=== PATIENT | female | born 1990 | race African-American/Black ===

== ENCOUNTER 2025-06-25 06:34 | Emergency (ER) | payer OTHER, SELFPAY ==
[2025-06-25 06:37] VITALS: BP 152/114
--- NOTE | 2025-06-25 06:49 | ED.GENMED ---
History of Present Illness
General
Chief Complaint: Chest Pain
Source: patient and other (care home RN)
Time Seen by Provider: 06/25/25 06:36
History of Present Illness
History of Present Illness:
Note:
CHIEF COMPLAINT(S)
Substance withdrawal, chest pain, and elevated blood pressure.
HISTORY OF PRESENT ILLNESS
The patient is a 35-year-old female with a history of pericarditis and substance use disorder. She presented with symptoms of withdrawal and chest pain after being released from [facility] this morning. She reports having missed her scheduled doses of
Suboxone (buprenorphine) due to an intended medication switch that was not implemented correctly. The patient attributes her current symptoms, including chest tightness and hypertension, to this lapse in her medication regimen. She reports that she
was on a daily dose of Suboxone before her incarceration and missed two doses since her release. The patient experienced chest pain, for which she was previously hospitalized, and was diagnosed with pericarditis treated with colchicine. She denies
any current symptoms indicative of pericarditis exacerbation. Prior to incarceration, the patient engaged in intravenous fentanyl use.
ADDITIONAL HISTORY OBTAINED FROM SOURCES OTHER THAN THE PATIENT
According to the patients report, the transition in medication from Suboxone to Sublocade was planned but not executed. Information regarding missed medication and initial hospital treatment was confirmed by unidentified records or personnel at the
[facility].
PAST MEDICAL AND SURGICAL HISTORY
The patient has a history of pericarditis.
CHRONIC MEDICAL CONDITIONS SIGNIFICANTLY AFFECTING CARE
History of pericarditis and substance use disorder are significant.
SOCIAL DETERMINANTS AFFECTING HEALTH
The patient reports a history of intravenous fentanyl use.
MEDICATIONS
The patient was previously on Suboxone (buprenorphine) once daily and colchicine for pericarditis.
REVIEW OF SYSTEMS
- Cardiovascular: Reports chest pain and hypertensive episodes.
- Neurological: No focal neurological deficit reported.
- Substance Use: History of intravenous fentanyl use.
PHYSICAL EXAM
General: Alert, no acute distress.
Skin: Warm, dry.
Head: Normocephalic, atraumatic.
Neck: Supple, trachea midline.
Eyes, Ears, Nose, Mouth, and Throat: Oral mucosa moist.
Cardiovascular: Tachycardic, hypertensive, regular heart sounds, no murmurs.
Respiratory: Respirations are non-labored.
Gastrointestinal: Abdomen nondistended.
Back: Normal range of motion, normal alignment.
Musculoskeletal: Normal ROM, normal strength.
Neurological: Alert and oriented to person, place, time, and situation.
Psychiatric: Cooperative, appropriate mood and affect.
PROBLEM LIST
Acute Problems:
- Substance withdrawal
- Hypertension
Chronic Problems:
- Pericarditis
- Substance use disorder
PLAN
1. Administer Subutex to manage withdrawal symptoms.
2. Conduct Electrocardiogram (EKG) to verify cardiac status.
3. Perform basic laboratory tests.
4. Administer intravenous fluids as needed.
5. Monitor and manage blood pressure.
DIFFERENTIAL DIAGNOSIS
The Differential Diagnosis includes, in no particular order and is not limited to:
1. Substance Withdrawal Syndrome
2. Acute Coronary Syndrome
3. Hypertensive Emergency
4. Myocarditis
5. Pericarditis
6. Anxiety-Related Chest Pain
7. Pulmonary Embolism
8. Panic Disorder
9. Drug-Induced Cardiovascular Effects
10. Tachyarrhythmia
CARE-UPDATE
06/25/25 - 06:48
Patient has not received the scheduled 16 mg of Subutex. There was an attempt to administer an additional 8 mg dose today due to her symptoms, but administration was unsuccessful. Awaiting records from recent hospitalization as discussed with the
care home nurse.
Disposition:
SUMMARY OF ENCOUNTER
The patient, a 35-year-old female with a history of pericarditis and substance use disorder, presented to the emergency department with substance withdrawal symptoms, chest pain, and elevated blood pressure after missing scheduled doses of
buprenorphine (Subutex) due to a medication transition issue. Symptoms were exacerbated following her release from [facility] earlier that day. Upon reassessment, she reported significant improvement, was able to eat, and was feeling better after initial
symptoms of emesis. The symptoms were strongly suspected to be related to buprenorphine withdrawal. Past attempts to gather records from previous hospitalizations during her recent incarceration were unsuccessful.
DISPOSITION
Discharge.
ASSESSMENT
The patients symptoms were attributed to withdrawal from buprenorphine due to missed doses.
PLAN
Administer Subutex to manage withdrawal symptoms. Allow continuation of current medication regimen as per [facility] protocol.
MEDICATION RECONCILIATION
- Buprenorphine (Subutex) administered for withdrawal management.
- Ensure continuance of prescribed buprenorphine regimen as per [facility] protocol.
MEDICAL DECISION MAKING
- Complexity of Data Reviewed: Chronic conditions affecting care include substance use disorder and history of pericarditis. Differential diagnoses considered were Substance Withdrawal Syndrome and related complications.
- Data:
Category 1:
- Attempts were made to review previous hospitalization records to cross-check current treatment, though these were unsuccessful.
Category 2:
- Clinical information was obtained from an independent historian with details provided by unidentified records or personnel at the [facility].
-Risk:
- Prescription medication was prescribed, and the patients care is significantly affected by social determinants related to her substance use history.
DIAGNOSIS
- Substance Withdrawal Syndrome (F11.23)
- Hypertension, Uncontrolled (I10)
- History of Pericarditis (I30.9)
Phy Exam
Physical Exam
Physical Exam:
.
Scores
Heart Score for Chest Pain Patients
STEMI patient?: Not applicable
Course
Orders/Labs/Results
Orders:
Orders
06/25/25 06:36
Electrocardiogram (*1) Urgent
Reason for Study: Chest Pain
Cardiac Monitoring- Treatment ONCE
EKG- Treatment ONCE
IV Insert/Care/Rem.- Treatment PRN
Pulse Ox/spot Check [RESP] Urgent
Quantity: 1
Special Instructions: ON ROOM AIR
06/25/25 06:53
Buprenorphine [Subutex] 16 mg SL NOW STA
06/25/25 08:13
Complete Blood Count/With Diff Urgent
Comprehensive Metabolic Panel Urgent
Troponin I Urgent
06/25/25 08:30
0.9% Sodium Chloride 1000 ml [Nss] 1,000 ml IV Wide Open mls/hr
Abnormal Lab Results
06/25/25
08:13
Absolute Neuts (auto) 6.7 H 10^3/uL
(1.4-6.5)
Absolute Lymphs (auto) 1.0 L 10^3/uL
(1.2-3.4)
Neutrophils % 83.5 H %
(42.2-75.2)
Lymphocytes % 12.3 L %
(20.5-51.1)
Glucose 133 H mg/dl
(70-99)
Total Protein 8.5 H g/dl
(6.3-8.2)
06/25/25 08:13
06/25/25 08:13
Vital Signs
Initial and Last Documented VS:
Initial Vital Signs
Pulse Resp BP Pulse Ox
122 14 152/114 100
06/25/25 06:37 06/25/25 06:37 06/25/25 06:37 06/25/25 06:37
Last Documented Vital Signs
Temp Pulse Resp BP Pulse Ox
97.7 F 114 12 121/92 98
06/25/25 07:27 06/25/25 09:25 06/25/25 09:25 06/25/25 09:00 06/25/25 09:58
*Pulse Oximetry
SaO2: 98
Patient hypoxic: no
*Automatic Serging Machine Operator Interpretation
Rate: tachycardiac
Interpretation: abnormal
Rhythm: sinus
*Critical Care Note
Total Time (30-74mins, 75-104mins- exclusive of procedures): Not Applicable
ED Attending Note
-
Portions of this chart may have been created with voice recognition software.� Occasional wrong word or��sound alike� substitutions may have occurred due to the inherent limitations of voice recognition software.
Discharge Plan
Departure
Patient Disposition: Home (Routine Discharge)
Date of Disposition: 06/25/25
Time of Disposition: 09:54
Patient with high blood pressure during this ER visit?: Yes
Discharge Problem:
subutex withdrawal
Instructions: Opioid withdrawal - ED (DC), BLOOD PRESSURE
Referrals:
[facility] [Family Provider, General]
Activity Restrictions/Additional Instructions:
Please be sure to get your Subutex dosing daily and do not miss. Return immediately for chest pain, shortness of breath, worsening symptoms or any other concerns. Follow-up as planned from recent hospitalization.
Interventions
Interventions:
*Risk Screen - Suicide Last Done: 06/25/25 06:37
*General Assessment Last Done: 06/25/25 06:37
*Neglect/Abuse Screening Last Done: 06/25/25 06:37
*Nursing Disposition Last Done: 06/25/25 10:11
ED- Cardiac Assessment Last Done: 06/25/25 06:51
Discharge Date and Time
Discharge Date/Time: 06/25/25 10:21
Print Language: SAUDI ARABIAN
[2025-06-25 06:52] VITALS: BMI 22.3
[2025-06-25] MEDS: SUBUTEX 16 MG SL (06:58)
[2025-06-25 07:01] VITALS: BP 170/120
[2025-06-25] MEDS: NSS 1000 IV (08:17)
[2025-06-25 08:18] VITALS: BP 164/120
[2025-06-25 08:29] LABS: Hematocrit 38.2 % (37.0-47.0); Hemoglobin 13.5 g/dL (12.0-16.0); Mean Corp Hgb Conc. 35.3 g/dL (33.0-37.0); Mean Corpuscular Volume 85.8 fL (81.0-99.0); Nucleated Red Blood Cells % 0 %; Platelet Count 328 10^3/uL (130-400); Red Cell Dist. Width 12.1 % (11.5-14.5)
[2025-06-25 08:41] LABS: ALT (SGPT) 33 U/L (0-35); AST (SGOT) 30 U/L (14-36); Albumin 4.7 g/dl (3.5-5.0); Alkaline Phosphatase 97 U/L (38-126); Blood Urea Nitrogen 11 mg/dl (7-17); Calcium 10.2 mg/dl (8.4-10.2); Carbon Dioxide 29 mmol/L (22-30); Chloride 100 mmol/L (98-107); Estimated Creatinine Clearance 106 ml/min; Glucose 133 mg/dl (70-99); Potassium 4.1 mmol/L (3.5-5.1); Sodium 136 mmol/L (135-145); Total Protein 8.5 g/dl (6.3-8.2); eGFR > 60.00
[2025-06-25 08:50] LABS: Troponin I 0.023 ng/ml
[2025-06-25 09:00] VITALS: BP 121/92
== END 2025-06-25 10:21 ==
LOC: EMR 06:34
PROVIDERS: EMERGENCY PHYSICIAN Emergency Medicine
DX: F11.23 Opioid dependence with withdrawal (principal); T40.496A Underdosing of other synthetic narcotics, initial encounter; Z91.138 Patient's unintentional underdosing of medication regimen for other reason; Z86.79 Personal history of other diseases of the circulatory system
CPT/HCPCS: 99284; 96360; 80053; 84484; 85025; 93005